=== PATIENT | female | born 1940 | race Caucasian/White ===

== ENCOUNTER 2016-07-31 12:33 | Outpatient (CLI) | payer OTHER ==
--- NOTE | 2016-07-31 13:45 | DIAGNOSTIC IMAGING REPORT ---
PROCEDURE: DEXA BONE DENSITY STUDY CLINICAL INDICATION: Menopausal, history of rheumatoid arthritis, taking vitamin D supplementation. COMPARISON: 12/27/2009 FINDINGS: LUMBAR SPINE: Bone mineral density 1.033 g/cm2, T score -0.1, normal, change from previous 2.1 percent . LEFT HIP: Bone mineral density 0.912 g/cm2, T score -0.2, normal, change from previous -4.2 percent, significant . LEFT FEMORAL NECK: Bone mineral density 0.616 g/cm2, T score -2.1, osteopenia, change from previous -15.3 percent, significant . FRACTURE RISK CALCULATION ( when applicable): 10-year fracture risk of a major osteoporotic fracture 16% and of a hip fracture 4.0% (T score greater or equal to -1.0 to: NORMAL) (T score from -1.1 to -2.4: OSTEOPENIA) (T score ess than or equal to -2.5: OSTEOPOROSIS) IMPRESSION: 1. Significant interval decrease in the left hip and left femoral neck bone mineral density compared to the previous study. 2. New osteopenia puts the patient at increased 10-year fracture risk as described.
== END 2016-07-31 23:00 ==
LOC: XR SRH 12:33
DX: Z78.0 Asymptomatic menopausal state (principal); M85.852 Other specified disorders of bone density and structure, left thigh